=== PATIENT | female | born 1995 ===

== ENCOUNTER 2019-01-06 17:36 | Inpatient (IN) | payer BC ==
[~2019-01-06] VITALS: Ht 147.3 cm; Wt 71.7 kg
[2019-01-06] MEDS ORDERED: FAMOTIDINE(*) 20MG/50ML PREMIX 50 ML IVPB PRN (18:41)
[2019-01-06] MEDS ORDERED: OXYTOCIN 30 UNIT/D5LR 500 ML 500 ML IV PRN (18:41)
[2019-01-06] MEDS ORDERED: LIDOCAINE 1% LOCAL 300 MG/30ML INJ PRN (18:45)
[2019-01-06] MEDS ORDERED: TERBUTALINE SULF 1 MG/ML VIAL IVP PRN (18:45)
[2019-01-06] MEDS ORDERED: METOCLOPRAMIDE 10 MG/2 ML SDV IVP PRN (18:45)
[2019-01-06] MEDS ORDERED: fentaNYL CITR 100 MCG/2 ML AMP IVP PRN (18:45)
[2019-01-06] MEDS ORDERED: FLUSH 10 ML SYR IVP PRN (18:45)
[2019-01-06] MEDS ORDERED: DINOPROSTONE 10 MG INSERT PV ONE (18:45)
[2019-01-06] MEDS ORDERED: LIDOCAINE/SOD BICARB 8.4% SYR SC PRN (18:45)
[2019-01-06 18:48] VITALS: BP 141/71; Ht 147.3 cm; Wt 71.7 kg
[2019-01-06 19:02] LABS: PLATELET COUNT, AUTOMATED 202 K/uL (150-450)
--- NOTE | 2019-01-06 20:00 | History & Physical ---
History of Present Illness EDC per LMP: January 08, 2019 Estimated Gestational Age: 39.5 Chief Complaint Induction for hypertension History of Present Illness 23-year-old at 39w5d presents for induction of labor due to hypertension. She was diagnosed with gestational hypertension today, but p erhaps is more consistent with chronic HTN based on two elevated diastolics prior to 12 weeks. She denies preeclampsia symptoms. She reports good movement. No vaginal bleeding or loss of fluid. Her care is otherwise uncomplicated. She transferred care from [place] in late third trimester. PNC by IMG. History Patient's Blood Type: A Positive Rubella Status: Immune Group B Strep Screen: Negative Obstetrical History: Hx SAB Past Medical History: See PNR Allergies: Coded Allergies: No Known Drug Allergies (Unverified , 12/16/18) Social History: No T/E/D. . Family History: FH: brain cancer MGM FH: lung cancer PGF FH: prostate cancer MGF FH: rheumatoid arthritis PGM FH: skin cancer FATHER MGM FH: stroke MGF Med Rec Home Meds No Active Prescriptions or Reported Meds Review of Systems Constitutional: No Fever Neurological: No Syncope Eyes: No Vision Change Cardiovascular: No Chest Pain Respiratory: No Shortness of Breath, No Cough Gastrointestinal: No Nausea, No Vomiting, No Diarrhea Genitourinary: No Dysuria Musculoskeletal: No Pain Psychiatric: No Depression, No Anxiety Exam General Exam Vital Signs Vital Signs Date Time Temp Pulse Resp B/P (MAP) Pulse Ox O2 Delivery O2 Flow Rate FiO2 01/06/19 18:48 98.0 116 18 141/71 (94) Room Air General Apperance: Alert/Awake/No Acute Distress Neuro: No Gross deficits Eyes: Normal Extraocular Movement & Vison Cardiovascular: Regular Rate and Rhythm Respiratory: No Respiratory Distress, Clear to Auscultation Abdomen: Gravid - Non-Tender Musculoskeletal: No Weakness/Pain Extremities: No Cyanosis,Clubbing or Edema Integumentary: Skin Intact without Lesions or Rash Psychological: Alert & Oriented X3, Appropriate Mood & Affect Cervical Dialation: 1 Cervical Effacement (%): 25 Cervical Consistency: Firm Cervical Position: Posterior Station: -3 Presentation: Vertex Uterine Contractions(Q min): 0 Fetus Feeling Movement?: Yes FHT Category: I Medical Decision Making Data Points Result Diagram: 01/06/19 1814 Urine Pr:Cr = 0.06 Assessment and Plan Problems: (1) Chronic hypertension affecting Assessment & Plan: 23-year-old at 39w5d presents for IOL due to hypertension. No preeclampsia symptoms and Pr:Cr = 0.06. All labs were normal today. She was started with cervadil for ripening tonight. Will re-evaluate in the morning. (2) 39 weeks gestation of ABBIE PLUMMER MD January 06, 2019 20:00
--- NOTE | 2019-01-06 20:19 | Anesthesia OB Pre-Anes Eval ---
History of Present Illness Anesthesia Start Date: January 06, 2019 Anesthesia Start Time: 20:06 Complications: None known EDC: January 08, 2019 : 2 Para: 0 Vital Signs: Vital Signs Date Time Temp Pulse Resp B/P (MAP) Pulse Ox O2 Delivery O2 Flow Rate FiO2 01/06/19 18:48 98.0 116 18 141/71 (94) Room Air Pain Ratin Heart Tones: 148 Result Diagram: 01/06/19 1814 Height (Inches): 58.00 Weight (Pounds): 158 BMI (kg/m2): 33 Past Medical History Medical History: hypertension (gestational) Surgical History: cholecystectomy, other ([place] teeth extraction) Previous Anesthesia: general, other (local) Attended Childbirth Classes?: No, Attended MAT ROLLER Lecture Hx Anesthesia Reactions: Yes (nausea after cholecystectomy) Home Meds No Active Prescriptions or Reported Meds Allergies: Coded Allergies: No Known Drug Allergies (Unverified , 12/16/18) Anesthesia OB ROS Neurological: No migraines/headaches, No seizures, No neuropathy, No other Contacts Statement: Denies contacts ENT: Denies Tooth caps, Denies Loose teeth, Denies Chipped teeth, Denies Dentures, Denies Bridges, Denies Retainers, Denies Veneers, Denies Implants, Denies Tongue ring, Denies Other Pulmonary: No asthma, No smoker (pks/day/yrs), No other Airway Class: ll Cardiovascular ROS: No edema, No arrhythmia, No other GI ROS: clear liquids Last Solids Date: January 06, 2019 Last Solids Time: 14:00 ROS: No Herpes, No STD(s), No Liver Disease, No Renal Disease, No Other Endocrine ROS: No diabetes, No gestational diabetes, No thyroid disorder, No other Musculoskeletal ROS: No low back pain, No low back injury, No scoliosis, No other ASA Classification: 2 Assessment and Plan Anesthesia Plan: LEB Assessment: Pleasant alert parturient with supportive family at side. Wishes to procede with epidural once labor is well established, despite delineated risks. Epidural Catheter Removal: Yes, Removed by: (Rowan Pickett CRNA) Removal Date: January 07, 2019 Removal Time: 15:01 (Sterile bandaid placed. Blue tip intact.) Condition S/P C/S for failure to descend. Epidural Narcotic 2.5 mg astramorph at 1500. 1/10 pain, stable. Full report to oncoming MAT ROLLER. Michelle Herrera. ROWAN PICKETT MAT ROLLER January 06, 2019 20:19
[2019-01-06] MEDS ORDERED: ZOLPIDEM TARTRATE 5 MG TAB PO PRN (21:00)
[2019-01-06] MEDS ORDERED: ONDANSETRON 4 MG/2 ML VIAL IVP PRN (21:55)
[2019-01-06] MEDS: ACETAMINOPHEN 500 MG TAB PO PRN (22:05)
[2019-01-06] MEDS: LR(*) 1000 ML BAG 1,000 ML IV PRN (23:32)
[2019-01-07] VITALS (15 sets, daily range): BP systolic 95–119; BP diastolic 57–82
[2019-01-07] MEDS ORDERED: LIDO/EPI 2% MPF 1:200,000 20ML EPI PRN (04:40)
[2019-01-07] MEDS ORDERED: BUPIVACAINE 0.25% MPF INJ EPI PRN (04:40)
[2019-01-07] MEDS ORDERED: fentaNYL CITR 100 MCG/2 ML AMP IT PRN (04:40)
[2019-01-07] MEDS ORDERED: LIDOCAINE/PF 2% 200MG/10ML AMP 200 MG/10 ML AMPUL EPI PRN (04:40)
[2019-01-07] MEDS ORDERED: FENTANYL/ROPIVACAINE 100 ML BAG EPI PRN (04:40)
[2019-01-07] MEDS ORDERED: BUPIVACAINE 0.5% INJ 30ML VIAL EPI PRN (04:40)
[2019-01-07] MEDS ORDERED: ePHEDrine 25 MG/5 ML DISP.SYR IVP ONE ×2 (04:55→13:51)
[2019-01-07] MEDS ORDERED: ROPIVACAINE 0.2% 20 ML VIAL ONE (05:20)
[2019-01-07] MEDS: LR(*) 1000 ML BAG 1,000 ML IV PRN ×2 (05:45→12:00)
--- NOTE | 2019-01-07 06:34 | Procedure Note ---
Anesthetic Placement Note Anesthesia Plan: CSE Anesthesia Technique: Patient Sitting Anesthesia Prep: Chlorhexidine Interspace: L 2-3 Local Anesthetic: 1% Lidocaine Amount Local - cc's: 2 Anesthesia Needle: 17g Pedro/Georges Loss of Resistance: Normal Saline Epidural Needle Placement: No CSF, No Blood, No Parasthesia Intrathecal Needle: 27 Gauge Pencan Cerebral Spinal Fluid: Yes, Clear Catheter Type: Asif - Spring Wound Epidural Dressing: Tegaderm, Tape Anesthesia Tray: Lot Number ([id number]), Expiration Date (2020-04-30) Anesthesia Medications: Intrathecal Dose: mcg Fentanyl (17), mg Marcaine MPF (5), Time (0542) Epidural Test Dose: 1.5 Lido/Epi (1:200,000), Dose - mL (3), Time (0543), Negative Epidural Loading Dose: Other (none, pt comfortable after CSE dosing.) Epidural Infusion: 0.2% Ropivicaine, With Fentanyl 2mcg/ml, Start Time: (0601) Epidural Pump Setting: Bolus Dose - mL (5), Lockout - Minutes (20), Maintenance Rate - mL/hr (6), Maximum per Hour - mL (21) Complications: Hypotension, briskly responsive to ephedrine Comment: Pain rating went from 10/10 to 0/10 in 4 minutes s/p cse dose. Legs heavey with + motor bilat. Pt. napping at 0630, contractions regular, BP and FHT stable. ROWAN PICKETT CRNA January 07, 2019 06:34
[2019-01-07] MEDS: ACETAMINOPHEN 500 MG TAB PO PRN (08:24)
--- NOTE | 2019-01-07 08:45 | Labor Progress Note ---
Labor Subjective Progress Notes Subjective Pt denies discomfort, nausea or emesis. Feeling Movement?: Yes Vaginal Discharge/Fluid: Clear Fluid (AROM at 0745 small amount) Labor Pain: Other (Pt is comfortable now with epidural. Pt denies pain, does feel some pressure. ) Neurological: No Headache Eyes: No Visual Disturbances Labor Objective Vital Signs Vital Signs Date Time Temp Pulse Resp B/P (MAP) Pulse Ox O2 Delivery O2 Flow Rate FiO2 01/06/19 18:48 98.0 116 18 141/71 (94) Room Air Vaginal Discharge/Fluid?: Clear Fluid, Small Amount Cervical Dialation: 3 Cervical Effacement (%): 50 Cervical Consistency: Moderate Cervical Position: Mid Station: -1 Presentation: Vertex (ROP) Uterine Contractions(Q min): 1 (to 5) Uterine Contraction Strength: Moderate UC Resting Tone: Soft Fetus Estimated Weight(grams): 3500 Heart Tones: 150 Heart Tone Variabilty: Minimal FHT Accelerations: 15X15, 10X10 FHT Decelerations: Late (Mixed variable decels and occasional lates. Bolusing with fluid. ), Variable FHT Category: II Other Result Diagram: 01/06/191813 Assessment and Plan Problems: (1) Chronic hypertension affecting Assessment & Plan: A/P 1. Labor State: IOL at term for GHTN, normotensive since admit, PIH lab WNL, Cervidil x 1, removed at 0700 with cervical change AROM at 0745 clear fluid May start pitocin if UCs space. 2. Well Being: Minimal variability, accel +, mixed mild variable decels and lates, currently receiving a fluid bolus ROP position at 0700 3. Marternal Well Being: Normotensive, periods of low BP 90/50, has had 2 doses of ephedrine, last dose at 0610, mild maternal tachycardia, afebrile 4. PNL: A+, rubella Immune, Serology NR, GBS neg PIH lab WNL, P/C 0.06 5. Pain Management: Epidural for pain management, comfortable 6. Feed: plans to breast feed 7. of medical complication: uncomplicated , had elevated BP in clinic yesterday was therefore admitted for IOL 8: Anticipate continued progress, will reassess in 2-3 hours, if no change will consider Pitocin for augmentation Assess descent of vtx, reposition, peanut ball Will consult with physician if lates persist after fluid bolus (2) 39 weeks gestation of BROCK MALDONADO CNM January 07, 2019 08:45
--- NOTE | 2019-01-07 10:21 | Labor Progress Note ---
Labor Subjective Progress Notes Subjective Pt feeling increased pressure with contractions, some low back discomfort. No urge to push at this point. Feeling Movement?: Yes Vaginal Discharge/Fluid: Bloody Show Labor Pain: Mild Neurological: No Headache Eyes: No Visual Disturbances Labor Objective Vital Signs Vital Signs Date Time Temp Pulse Resp B/P (MAP) Pulse Ox O2 Delivery O2 Flow Rate FiO2 01/06/19 18:48 98.0 116 18 141/71 (94) Room Air Vaginal Discharge/Fluid?: Bloody Show Cervical Dialation: 9 Cervical Effacement (%): 100 Cervical Consistency: Soft Cervical Position: Mid Station: 0 Presentation: Vertex (OP) Uterine Contraction Strength: Moderate Fetus Heart Tones: 150 Heart Tone Variabilty: Moderate FHT Accelerations: 10X10 FHT Decelerations: Variable FHT Category: II General Exam General Appearance: Afebrile Psychological: Alert & Oriented X3 Other Result Diagram: 01/06/19 5464 Assessment and Plan Problems: (1) Chronic hypertension affecting Assessment & Plan: Assessment & Plan: A/P 1. Labor State: IOL at term for GHTN, normotensive since admit, PIH lab WNL, Active labor Cervidil x 1, removed at 0700 with cervical change AROM at 0745 clear fluid 2. Well Being: Cat 2 Minimal variability, accel +, mixed mild variable decels 3. Marternal Well Being: Normotensive, periods of low BP 90/50, has had 2 doses of ephedrine, last dose at 0610, mild maternal tachycardia, afebrile 4. PNL: A+, rubella Immune, Serology NR, GBS neg PIH lab WNL, P/C 0.06 5. Pain Management: Epidural for pain management, comfortable 6. Feed: plans to breast feed 7. of medical complication: uncomplicated , had elevated BP in clinic yesterday was therefore admitted for IOL 8: Anticipate (2) 39 weeks gestation of BROCK MALDONADO CNM January 07, 2019 10:21
[2019-01-07] MEDS ORDERED: OXYTOCIN 30 UNIT/NS 500 ML 500 ML IV PRN (10:40)
--- NOTE | 2019-01-07 11:19 | Anesthesia Progress Note ---
Progress/Maintenance Anesthesia Note Date: January 07, 2019 Anesthesia Note Time: 10:35 Pain Intensity: 2 Pump: On Pump Rate (ML/HR): 6 Sensory Level: T-9 Motor Level: Bending Knees-Bilateral Dilatation: 10 (Complete) Position: Semi-Fowlers (Stirrups) Anesthesia Treatment: Pt pushing. Reports adequate pain relief. ROWAN MARTINES CRNA January 07, 2019 11:19
[2019-01-07] MEDS ORDERED: MORPHINE PF 5 MG/10 ML AMP ONE (13:01)
[2019-01-07] MEDS ORDERED: OXYTOCIN 10 UNIT/ML SDV ONE (13:01)
[2019-01-07] MEDS ORDERED: LIDOCAINE ONE (13:04)
[2019-01-07] MEDS ORDERED: BUPIVACAINE 0.5% INJ 30ML VIAL ONE (13:04)
--- NOTE | 2019-01-07 13:23 | Labor Progress Note ---
Labor Subjective Progress Notes Subjective Pt feeling pressure while pushing, but no other complaints. 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 Pt consented for PLTCS. Risks benefits and alternatives dicussed. Will give 2 gm ancef preop. Anesthesia and peds called. ) Problems: (1) Chronic hypertension affecting (2) 39 weeks gestation of JOSE M SALAS DO January 07, 2019 13:23
[2019-01-07] MEDS ORDERED: ONDANSETRON 4 MG/2 ML VIAL ONE (14:07)
[2019-01-07] MEDS ORDERED: DEXAMETHASONE SOD 4 MG/ML VIAL ONE (14:07)
[2019-01-07] MEDS ORDERED: MAGNESIUM HYDROXIDE* 30ML UDCP PO PRN (15:15)
[2019-01-07] MEDS ORDERED: INFLUENZA VIRUS VAC 0.5ML SYR IM ONLY ONE (15:15)
[2019-01-07] MEDS ORDERED: ONDANSETRON 4 MG/2 ML VIAL IV PRN (15:15)
[2019-01-07] MEDS ORDERED: DIPHTH/TETANUS/ACEL. PERTUSSIS IM ONLY ONE (15:15)
[2019-01-07] MEDS ORDERED: SIMETHICONE 80 MG CHEW CHEW PRN (15:15)
[2019-01-07] MEDS ORDERED: oxyCODON/ACET (*)5/325MG (CII) 1 TAB TAB PO PRN (15:15)
[2019-01-07] MEDS ORDERED: LANOLIN OINT 7 GM TUBE TP PRN (15:15)
[2019-01-07] MEDS ORDERED: OXYTOCIN 30 UNIT/D5LR 500 ML 500 ML IV PRN (15:15)
[2019-01-07] MEDS ORDERED: DLR(*) 1000 ML BAG 1,000 ML IV PRN (15:15)
[2019-01-07] MEDS ORDERED: MEASLES,MUMP,RUBELLA VAC 0.5ML SUBQ ONE (15:15)
[2019-01-07] MEDS ORDERED: PROMETHAZINE 25 MG/ML 1 ML AMP IVP PRN (15:15)
--- NOTE | 2019-01-07 15:26 | Post Operative Note ---
Operative Note - [employer] Operative Day Date: January 07, 2019 Time: 14:00 Physicians Surgeon: Dr. Campbell Bleach Tester: Diana Montes CNM Anesthesia: Epidural with bolus Diagnosis Pre-Op Diagnosis: IUP at term, gestational hypertension, arrest of descent in the second stage Post-Op Diagnosis: Same as above, with occiput posterior presentation, viable cph female weighing 7 lb 0 oz with apgars of 9 and 9 Procedure Findings: Normal appearing uterus, tubes and ovaries Procedure(s): Primary Low transverse c/section Specimen Removed:(Maybe N/A): Placenta, umbilical cord blood and cord gases Complications: none Fluids Estimated Blood Loss: 600 cc Dictated Date OP Note Dictated: January 07, 2019 Time OP Note Dictated: 15:00 JOSE M CAMPBELL DO January 07, 2019 15:26
[2019-01-07] MEDS ORDERED: NALBUPHINE HCL 10 MG/ML AMP IVP PRN (15:50)
[2019-01-07] MEDS ORDERED: diphenhydrAMINE 50 MG/ML VIAL IV PRN (15:50)
[2019-01-07] MEDS ORDERED: SCOPOLAMINE 1.5 MG PATCH TD PRN (16:00)
--- NOTE | 2019-01-07 16:03 | Anesthesia Progress Note ---
Progress/Maintenance Report Received From: Other Report Time: 16:02 Care Assumed By: Michelle Herrera CRNA (Rowan Pickett CRNA) Time Care Assumed: 16:02 ROWAN PICKETT CRNA January 07, 2019 16:03
--- NOTE | 2019-01-07 16:42 | Labor Progress Note ---
Labor Subjective Progress Notes Subjective Delayed Entry: At 1230 Dr. Campbell was called to evaluate patient and lack of descent of vertex after 2 hours of pushing. S: Pt reports continued pressure. Denies acute pain. Vaginal Discharge/Fluid: Bloody Show Labor Pain: Moderate Neurological: No Headache Eyes: No Visual Disturbances Labor Objective Vital Signs Vital Signs Date Time Temp Pulse Resp B/P (MAP) Pulse Ox O2 Delivery O2 Flow Rate FiO2 01/06/19 18:48 98.0 116 18 141/71 (94) Room Air Vaginal Discharge/Fluid?: Bloody Show Cervical Dialation: 10 Cervical Effacement (%): 100 Cervical Consistency: Soft Station: +1 Presentation: Vertex (ROP) Uterine Contractions(Q min): 3 Uterine Contraction Strength: Strong UC Resting Tone: Soft Fetus Heart Tones: 150 Heart Tone Variabilty: Minimal FHT Accelerations: 10X10 FHT Decelerations: Variable FHT Category: II General Exam General Appearance: Afebrile Abdomen: Soft, Non-Tender, Non-Distended, Gravid - Non-Tender Psychological: Alert & Oriented X3 Other Result Diagram: 01/06/19 1814 Assessment and Plan Problems: (1) Chronic hypertension affecting Assessment & Plan: Assessment & Plan: Assessment & Plan: A/P 1. Labor State: IOL at term for GHTN, normotensive since admit, PIH lab WNL, Active labor Cervidil x 1, removed at 0700 with cervical change AROM at 0745 clear fluid Arrest of descent 2. Well Being: Cat 2 Minimal variability, accel +, mixed mild variable decels 3. Marternal Well Being: Normotensive, periods of low BP 90/50, has had 2 doses of ephedrine, last dose at 0610, mild maternal tachycardia, afebrile 4. PNL: A+, rubella Immune, Serology NR, GBS neg PIH lab WNL, P/C 0.06 5. Pain Management: Epidural for pain management, comfortable 6. Feed: plans to breast feed 7. of medical complication: uncomplicated , had elevated BP in clinic yesterday was therefore admitted for IOL 8: Anticipate: Dr. Adrian DO called to evaluate current labor state and to evaluate the for operative delivery. (2) 39 weeks gestation of BROCK MALDONADO CNM January 07, 2019 16:42
[2019-01-07] MEDS ORDERED: FAMOTIDINE(*) 20MG/50ML PREMIX 50 ML IVPB ONE (18:32)
[2019-01-07] MEDS ORDERED: CEFAZOLIN IVPB ONE (18:33)
[2019-01-07] MEDS ORDERED: [UNRECOGNIZED DRUG - OTHER] IVPB ONE (18:33)
--- NOTE | 2019-01-07 19:31 | OPERATIVE REPORT 1 ---
EVENT DATE: January 07, 2019 SURGEON: Yara Campbell DO ANESTHESIOLOGIST: Adali Parekh CRNA ANESTHESIA: Epidural with bolus. PREOPERATIVE DIAGNOSES 1. Intrauterine at term. 2. Gestational hypertension. 3. Arrest of descent in the second stage of labor. POSTOPERATIVE DIAGNOSES 1. Intrauterine at term. 2. Gestational hypertension. 3. Arrest of descent in the second stage of labor. 4. Delivery of a viable cephalic female in the occiput posterior presentation, weighing 7 pounds zero ounces with Apgars of 9 and 9. PROCEDURE PERFORMED Primary low transverse section. ESTIMATED BLOOD LOSS 600 mL. TISSUES REMOVED Placenta, umbilical cord blood, and umbilical cord gases. COMPLICATIONS None. DISPOSITION Stable to recovery room. DESCRIPTION OF PROCEDURE After informed consent was obtained, the patient was taken to the operating room. Epidural anesthesia was found to be adequate after bolus. Patient was placed on the operating table in the supine position with leftward tilt and then prepped and draped in the normal sterile fashion. Pfannenstiel skin incision was made using the scalpel and carried down to the underlying layer over the fascia. The fascia was incised in the midline and extended out laterally with sharp dissection. Jennie clamps were then placed on the superior and inferior aspects of the fascia, and underlying rectus muscles were dissected off sharply. Rectus muscles were then in the midline, and the peritoneum was entered digitally. Peritoneal incision was then extended out laterally with sharp dissection with good visualization of both bowel and bladder. At this time, the Matthew O abdominal retractor was placed and secured. A bladder flap was created with sharp dissection. The lower uterine segment was then incised in a transverse curvilinear fashion using the scalpel. Hysterotomy incision was then extended out laterally with blunt dissection. 's head was delivered atraumatically. Nose and mouth were bulb suctioned after delivery. Infant was vigorous at . Three-vessel cord was clamped and cut after approximately a 30-second delay. At this time, the was passed off to our awaiting nursery and pediatric staff. At this time, a segment of the umbilical cord was doubly clamped and cut off and passed to the nurses for assessment of umbilical cord blood and gases. Placenta was then delivered manually and noted to be intact. The uterus was exteriorized and cleared of all clots and debris. Hysterotomy incision was then repaired in running locked fashion using 0 Vicryl. Two additional stitches of 0 Vicryl in a [id number] fashion were used across the hysterotomy to ensure hemostasis. Irrigation was then performed. Uterus was returned back to the abdomen. Hysterotomy incision was noted to remain dry. We did visualize bilaterally normal ovaries and fallopian tubes. Gutters were cleared of any remaining clots at this time. The Matthew retractor was removed. Our first count was correct, and we proceeded with closure of the fascia. Fascia was reapproximated in the midline using #1 Vicryl. Subcutaneous layer was dried after irrigation and was reapproximated using 3-0 Vicryl, and the skin was closed using a subcuticular stitch of 4-0 Monocryl. Patient tolerated the procedure well. Sponge, lap, and instrument counts were correct, and she was taken to the recovery room in stable condition. BRITT
[2019-01-07] MEDS ORDERED: KETOROLAC 30 MG/ML VIAL IVP SCH (21:00)
[2019-01-07] MEDS: FAMOTIDINE 20 MG TAB PO SCH (21:30)
[2019-01-07] MEDS: DOCUSATE CALCIUM 240 MG CAP PO SCH (21:30)
[2019-01-07] MEDS: KETOROLAC 30 MG/ML VIAL IVP SCH (21:31)
[2019-01-08 01:30] VITALS: BP 99/55
[2019-01-08] MEDS: KETOROLAC 30 MG/ML VIAL IVP SCH ×2 (04:27→10:44)
[2019-01-08 04:28] VITALS: BP 101/55
[2019-01-08 06:12] LABS: PLATELET COUNT, AUTOMATED 148 K/uL (150-450)
[2019-01-08 07:45] VITALS: BP 107/80
[2019-01-08] MEDS: FAMOTIDINE 20 MG TAB PO SCH ×2 (09:00→20:48)
[2019-01-08] MEDS: DOCUSATE CALCIUM 240 MG CAP PO SCH ×2 (09:00→20:48)
[2019-01-08] MEDS: FERROUS GLUCONATE 324 MG TAB PO SCH ×2 (10:44→20:48)
--- NOTE | 2019-01-08 12:12 | OB/GYN Progress Note ---
OB Subjective Progress Notes Subjective Pt doing well, no complaints. Lochia light. Her jameson was removed last night and she was unable to void spontaneously. The jameson was replaced this AM and she has excellent output. Ambulating without difficulty and tolerating gen diet. . GI: POS Flatus; NEG Nausea, NEG Vomiting, NEG Bowel Movement : Vaginal Bleeding, Scant Pain: Mild, Tolerating PO Pain Meds OB Objective Physical Exam Vital Signs Date Time Temp Pulse Resp B/P (MAP) Pulse Ox O2 Delivery O2 Flow Rate FiO2 01/08/19 07:45 98.6 72 18 107/80 (89) 99 Room Air 01/07/19 17:35 1.0 Intake and Output 01/08/19 07:00 Intake Total 2503 ml Output Total 300 ml Balance 2203 ml Intake IV Total 2503 ml Output Urine Total 300 ml General Appearance: Alert/Awake/No Acute Distress, Afebrile Neurological: No Gross deficits Eyes: Normal Extraocular Movement & Vison Respiratory: No Respiratory Distress, Clear to Auscultation Abdomen: Soft, Non-Tender, Non-Distended, Fundus Firm Incision: Clean, Dry, Intact, Dermabond Extremities: No Cyanosis,Clubbing or Edema Integumentary: Skin Intact without Lesions or Rash Psychological: Alert & Oriented X3, Appropriate Mood & Affect Result Diagram: 01/08/19 0550 Assessment and Plan Post Day: 1 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 (2) Acute blood loss as cause of postoperative anemia Assessment & Plan: PT asymptomatic, will give oral iron and monitor. No intervention at this time. (3) Chronic hypertension affecting Assessment & Plan: BP stable, no meds, continue observation. (4) 39 weeks gestation of JOSE M SALAS DO January 08, 2019 12:11
[2019-01-08] MEDS: IBUPROFEN 800 MG TAB PO SCH (16:02)
[2019-01-08 21:05] VITALS: BP 108/66
[2019-01-09] MEDS: IBUPROFEN 800 MG TAB PO SCH ×2 (00:01→07:47)
[2019-01-09 04:17] VITALS: BP 115/68
[2019-01-09 07:10] VITALS: BP 121/84
[2019-01-09] MEDS: DOCUSATE CALCIUM 240 MG CAP PO SCH (09:34)
[2019-01-09] MEDS: FAMOTIDINE 20 MG TAB PO SCH (09:34)
[2019-01-09] MEDS: FERROUS GLUCONATE 324 MG TAB PO SCH (09:34)
[2019-01-09] MEDS ORDERED: PER PO (13:44)
[2019-01-09] MEDS ORDERED: FERR324T4 PO (13:44)
--- NOTE | 2019-01-09 13:54 | OB/GYN Discharge Summary ---
Discharge Summary Reason for Hosp/Final Diag: (1) Postoperative urinary retention Status: Resolved (2) Acute blood loss as cause of postoperative anemia Status: Resolved (3) Chronic hypertension affecting Status: Resolved (4) 39 weeks gestation of (5) care following delivery Hospital Course & Plan: 1. Discharge to home today with post operative care instructions 2. Rx for Percocet 1-2 q 4 hours prn pain, continue vitamins and rx for iron sent to [facility] 3. follow up in clinic at 2 and 6 weeks, call to make appt with Dr. Adrian KARIMI 4. Resources for breast feeding support reviewed 5. Reviewed problem warning signs Lates Vital Signs Vital Signs Date Time Temp Pulse Resp B/P (MAP) Pulse Ox O2 Delivery O2 Flow Rate FiO2 01/09/19 04:17 97.1 101 16 115/68 (84) 01/08/19 07:45 99 Room Air 01/07/19 17:35 1.0 Weight (Pounds): 158 Result Diagram: 01/08/19 0550 Condition: Improved Discharge: Home, Self Alf Meds Active Scripts Oxycodone/Acetaminophen (OXYCODONE/ACETAMINOPHEN 5MG/325 MG) 5 Mg/325 Mg Tab, 1- 2 TAB PO Q4H PRN for PAIN, #20 TAB 0 Refills Prov:BROCK MALDONADO CNM 01/09/19 Follow up Referrals: NURSING SERVICE DIRECTOR - [facility] JOSE M SALAS DO Follow up with: [facility] [phone] Follow up in: 6 wks PP or PO, 2 wks PO Discharge Diet: Resume Prior Admit Diet Discharge Activity: No Heavy Lifting x 6 wks, No Heavy Lifting > 10lb, Pelvic Rest Special Instructions: No driving for 6 weeks. BROCK MALDONADO CNM January 09, 2019 13:54
--- NOTE | 2019-01-09 13:59 | OB/GYN Progress Note ---
OB Subjective Progress Notes Subjective Pt desire to go home today. Denies acute pain. Voiding without problems at this time. No BM yet but passing flatus. Taking IBU and tylenol for pain and Percocet for breakthrough pain. GI: POS Flatus; NEG Nausea, NEG Vomiting, NEG Bowel Movement : Voiding Well, Vaginal Bleeding, Scant Pain: Mild Neurological: No Headache Eyes: No Visual Disturbances OB Objective Physical Exam Vital Signs Date Time Temp Pulse Resp B/P (MAP) Pulse Ox O2 Delivery O2 Flow Rate FiO2 01/09/19 04:17 97.1 101 16 115/68 (84) 01/08/19 07:45 99 Room Air 01/07/19 17:35 1.0 Intake and Output 01/09/19 07:00 Output Total 3550 ml Balance -3550 ml Output Urine Total 3550 ml General Appearance: Alert/Awake/No Acute Distress, Afebrile Neurological: No Gross deficits Eyes: Normal Extraocular Movement & Vison Cardiovascular: Normal Rhythm & Peripheral Pulses Respiratory: No Respiratory Distress, Clear to Auscultation Abdomen: Soft, Non-Tender, Non-Distended, Fundus Firm Incision: Clean, Dry, Intact, Dermabond Extremities: No Cyanosis,Clubbing or Edema, Warm Integumentary: Skin Intact without Lesions or Rash Psychological: Alert & Oriented X3, Appropriate Mood & Affect Result Diagram: 01/08/19 0550 Assessment and Plan Problems: (1) Postoperative urinary retention Status: Resolved (2) Acute blood loss as cause of postoperative anemia Status: Resolved (3) Chronic hypertension affecting Status: Resolved (4) 39 weeks gestation of (5) care following delivery Assessment & Plan: 1. plan to dc to home to self care. 2. Follow up in 2-6 weeks with BROCK Weiss CNM January 09, 2019 13:59
== END 2019-01-09 14:30 | disposition home or self-care (01) | DRG 787 ==
LOC: OB 17:36
PROVIDERS: ADMIT Obstetrics & Gynecology; ATTEND Obstetrics & Gynecology
PROC: 3E0P7VZ Introduction of Hormone into Female Reproductive, Via Natural or Artificial Opening (ICD-10-PCS; 2019-01-06)
PROC: 10907ZC Drainage of Amniotic Fluid, Therapeutic from Products of Conception, Via Natural or Artificial Opening (ICD-10-PCS; 2019-01-07)
PROC: 10D00Z1 Extraction of Products of Conception, Low, Open Approach (ICD-10-PCS; principal; 2019-01-07 14:00)
DX: O13.4 Gestational [pregnancy-induced] hypertension without significant proteinuria, complicating childbirth (principal); D62 Acute posthemorrhagic anemia; O99.02 Anemia complicating childbirth; O62.1 Secondary uterine inertia; O64.0XX0 Obstructed labor due to incomplete rotation of fetal head, not applicable or unspecified; O76 Abnormality in fetal heart rate and rhythm complicating labor and delivery; Z37.0 Single live birth; Z3A.39 39 weeks gestation of pregnancy
CPT/HCPCS: 36415; 85025; 86850; 86900; 86901; J1100; J1200; J1885; J2270; J2405; J2590; J3010; J3490; J7120

== ENCOUNTER → 2019-01-06 | Outpatient (CLI) | payer BC ==
[~2019-01-06] MED LIST: DIPH0.5S2 IM
== END ==
LOC: LAB 10:04
PROVIDERS: ATTEND Student in an Organized Health Care Education/Training Program
DX: O13.9 Gestational [pregnancy-induced] hypertension without significant proteinuria, unspecified trimester (principal)
CPT/HCPCS: 36415; 82040; 82247; 82310; 82374; 82435; 82565; 82570; 82947; 84075; 84132; 84155; 84156; 84295; 84450; 84460; 84520; 85027